=== PATIENT | female | born 1985 | race Caucasian/White ===

== ENCOUNTER 2017-10-21 02:16 | Inpatient (IN) | payer OTHER ==
[~2017-10-21] VITALS: Ht 149.9 cm; Wt 43.5 kg
--- NOTE | 2017-10-21 03:30 | NUR ---
PRE-ADMISSION NOTE VS BP-117/74 T-98.9 P-115 R-18 PA-08/14. PATIENT SEEN IN INTAKE. PATIENT ALERT AND VERBALLY RESPONSIVE. PATIENT AMBULATORY. SPEECH CLEAR AND ANSWERS QUESTIONS APPROPRIATELY. PATIENT ANXIOUS, RESTLESS AND IRRITABLE. PATIENT IS ALLERGIC TO CODEINE AND STRAWBERRY. WILL CONTINUE ADMISSION ON 3RD FLOOR.
[2017-10-21] MEDS ORDERED: LORAZEPAM 2 MG/1 ML VIAL IM PRN (03:45)
[2017-10-21] MEDS ORDERED: diphenhydrAMINE 50 MG CAPSULE PO PRN (03:45)
[2017-10-21] MEDS ORDERED: THIAMINE HCL 200 MG/2 ML VIAL IM ONE (03:45)
[2017-10-21] MEDS ORDERED: HYDROXYZINE PAMOATE 25 MG CAPSULE PO PRN (03:45)
[2017-10-21] MEDS ORDERED: IBUPROFEN 400 MG TABLET PO PRN (03:45)
[2017-10-21] MEDS ORDERED: LOPERAMIDE HCL 2 MG CAPSULE PO PRN ×2 (03:45)
[2017-10-21] MEDS ORDERED: DICYCLOMINE HCL 20 MG TABLET PO PRN (03:45)
[2017-10-21] MEDS ORDERED: MIRALAX 17 GM POWD.PACK PO PRN (03:45)
[2017-10-21] MEDS ORDERED: ACETAMINOPHEN 325 MG TABLET PO PRN (03:45)
[2017-10-21] MEDS ORDERED: CLONIDINE HCL 0.1 MG TABLET PO PRN (03:45)
[2017-10-21] MEDS ORDERED: ONDANSETRON 4 MG/2 ML VIAL IM PRN (03:45)
[2017-10-21] MEDS ORDERED: MAG HYDROX/AL HYDROX/SIMETH 30 ML LIQUID UDC PO PRN (03:45)
[2017-10-21] MEDS ORDERED: ONDANSETRON ODT 4 MG TAB.RAPDIS SL PRN (03:45)
[2017-10-21] MEDS ORDERED: MAGNESIUM HYDROXIDE 30 ML LIQUID UDC PO PRN (03:45)
[2017-10-21] MEDS ORDERED: LORAZEPAM 1 MG TABLET PO PRN ×2 (03:45)
--- NOTE | 2017-10-21 03:56 | NUR ---
ADMISSION NOTE PATIENT IS A 32 YEAR OLD FEMALE WHO PRESENTS TO [facility] FOR MEDICALLY SUPERVISED WITHDRAWAL FROM ETOH/BENZO WITHDRAWAL . HEIGHT IS 4'11 AND WEIGHT IS 95 LBS . BODY CHECK DONE . PATIENT NOTED WITH MULTIPLE CUTS ON LEFT ARM AND LEFT THIGH , PATIENT STATES SHE IS CUTTING HERSELF SINCE SHE WAS 16 YEARS OLD, LAST ONE WAS 2 DAYS AGO. PICTURE TAKEN. RESPIRATION EVEN AND UNLABORED. LUNGS CLEAR AND ABDOMEN SOFT AND NON-DISTENDED. BOWEL SOUNDS ACTIVE IN ALL QUADRANT. PATIENT REQUESTED TO BE FULL CODE AND ON REGULAR DIET. 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 NO SEIZURE HISTORY. PATIENT IS SEEKING FOR TREATMENT BECAUSE I WANT TO DETOX FROM ALCOHOL AND TO LEARN HOW TO FUNCTION AGAIN . SHE LIVE WITH HER AND SHES UNEMPLOYED. SUBSTANCE HISTORY 1.ALCOHOL (MICHELOB LIGHT/SMIRNOFF)-STARTED USING AT AGE 15. SHE DRINKS INTERMITTENTLY/BINGE- 2 (6 PACK ), WKLY ON/OFF AND MONTHS (ON/OFF) FOR 3 YEARS. LAST DRINK WAS 8 BOTTLES OF MICHELOB LIGHT PRIOR TO ADMISSION AT 1 AM. 2.ATIVAN 0.5 MG (PRESCRIBED)-STARTED USING 4 YEARS AGO. HE TAKES 1-2 MG NEEDED BID FOR 4 YEARS. LAST USE WAS 1 MG ON 10/20/17 AT 6 PM PER PATIENT THIS IS HER FIRST TIME IN DETOX FOR ALCOHOL. PATIENT PRESENTS WITH FLAT AFFECT, DEPRESSED MOOD, ANXIETY, IRRITABILITY, RESTLESSNESS, AND EMOTIONAL . CIWA 7. SHE STATES SHE HAS SUICIDE IDEATION THROUGHOUT THE DAY BUT NOT THIS TIME. HER PCP IS NAMED DR. BRADLEY. PATIENT ORIENTED TO SURROUNDINGS AND HOW TO USE CALL LIGHT. CALL LIGHT IN REACH. WILL CONTINUE TO MONITOR .
[2017-10-21] MEDS ORDERED: BACL20TA PO (03:58)
[2017-10-21] MEDS ORDERED: [UNRECOGNIZED DRUG - CODE] MM (03:58)
[2017-10-21] MEDS ORDERED: QUET400T3 PO (03:58)
[2017-10-21 05:16] LABS: *URINE HCG, QUAL NEGATIVE (NEGATIVE)
[2017-10-21 05:17] LABS: ALANINE AMINOTRANSFERASE 19 U/L (14-59); ALKALINE PHOSPHATASE 64 U/L (50-136); AMYLASE 28 U/L (25-115); ASPARTATE AMINOTRANSFERASE 16 U/L (15-37); BILIRUBIN,TOTAL 0.3 mg/dL (0.2-1.0); CARBON DIOXIDE 26 mmol/L (21-32); CHLORIDE 103 mmol/L (98-107); CREATININE 0.9 mg/dL (0.6-1.3); GLUCOSE 117 mg/dL (74-106); LIPASE 143 U/L (73-393); MAGNESIUM 2.3 mg/dL (1.8-2.4); POTASSIUM 3.7 mmol/L (3.5-5.1); TOTAL PROTEIN, SERUM 7.5 g/dL (6.4-8.2); UREA NITROGEN, BLOOD 6 mg/dL (7-18)
[2017-10-21 05:26] LABS: THYROID STIMULATING HORMONE 2.207 mIU/mL (0.358-3.740)
[2017-10-21 05:28] LABS: *AMPHETAMINE, URINE NEGATIVE (NEGATIVE); *BARBITURATE, URINE NEGATIVE (NEGATIVE); *CANNABINOID, URINE NEGATIVE (NEGATIVE); *COCCAINE, URINE NEGATIVE (NEGATIVE); *OPIATE, URINE NEGATIVE (NEGATIVE); *PHENCYCLIDINE SCREEN,URINE NEGATIVE (NEGATIVE)
[2017-10-21 05:31] LABS: ETHANOL < 3 MG/DL (0-0)
[2017-10-21 05:33] LABS: BASOPHILS % (AUTO) 0.3 % (0.0-2.0); EOSINOPHILS % (AUTO) 0.2 % (0.0-7.0); HEMATOCRIT 42.8 % (31.2-41.9); LYMPHOCYTES # (AUTO) 3.5 K/uL (20.0-40.0); LYMPHOCYTES % (AUTO) 25.2 % (20.5-51.5); MEAN CORPUSCULAR HEMOGLOBIN 31.5 uug (24.7-32.8); MEAN CORPUSCULAR HGB CONC 35 g/dL (32.3-35.6); MEAN CORPUSCULAR VOLUME 89.8 fL (75.5-95.3); MONOCYTES # (AUTO) 1.2 K/uL (2.0-10.0); MONOCYTES % (AUTO) 8.8 % (0.0-11.0); NEUTROPHILS # (AUTO) 9.2 K/uL (1.8-8.9); NEUTROPHILS % (AUTO) 65.5 % (38.5-71.5); PLATELET COUNT (AUTO) 304 K/uL (179-408); RED BLOOD CELL COUNT(AUTO) 4.76 MIL/uL (3.63-4.92); WHITE BLOOD COUNT (AUTO) 14.1 K/uL (3.8-11.8)
--- NOTE | 2017-10-21 05:35 | NUR ---
PRN VISTARIL ADMIN PATIENT C/O ANXIETY. WILL MONITOR FOR EFFECTIVENESS
[2017-10-21] MEDS ORDERED: LORA-258 PO (06:17)
--- NOTE | 2017-10-21 06:35 | NUR ---
PRN VISTARIL RE-ASSESSMENT PATIENT STATES VISTARIL HELPFUL AND EFFECTIVE. WILL CONTINUE TO MONITOR
[2017-10-21 08:00] VITALS: BP 102/64
--- NOTE | 2017-10-21 08:00 | NUR ---
START OF SHIFT NOTE Received report from night nurse, Patient admitted for ETOH withdrawal. Patient currently not on any taper PRN'S available for increased /s of withdrawal. Per endorsement pt received PRN Vistaril and last CIWA score was 7, slept for 1 hours. Patient is currently resting in her room and reported " I am feeling so tired please do not disturb me". Breathing normal no SOB noted. Responsive to verbal and tactile stimuli. Skin warm and dry to touch. All safety measures in place. Call light within reach. Will cont to monitor. Addendum: 10/21/17 at 1238 by ELANA HAAS LVN Vistaril was effective per night nurse.
[2017-10-21] MEDS ORDERED: THIAMINE HCL 100 MG TABLET PO SCH (09:00)
[2017-10-21] MEDS ORDERED: MULTIVITAMINS,THERAPEUTIC TABLET PO SCH (09:00)
[2017-10-21] MEDS ORDERED: FOLIC ACID 1 MG TABLET PO SCH (09:00)
[2017-10-21 12:00] VITALS: BP 123/86
--- NOTE | 2017-10-21 12:45 | NUR ---
AMA NOTE Pt left AMA, Pt refused to comply with treatment plan. Pt educated about the risks and consequences of leaving AMA, pt verbalized understanding but was adamant about leaving. Multiple staff members including the doctor, patient advocates and nurses attempted to reason with the pt without any success. VS WNL. Skin intact, pt denies any suicidal or homicidal ideations. Pt psychiatrist and MD were notified and aware. Patient was given a list of community resources, AMA forms explained and signed. All belongings and medications returned to Patient. Patient left facility AMA on 10/21/17 at 1245.
[2017-10-21] MEDS ORDERED: QUETIAPINE FUMARATE 200 MG TABLET PO SCH (21:00)
[2017-10-22] MEDS ORDERED: TUBERCULIN,PURIF.PROT.DERIV. 5 TU/0.1 ML TEST ID ONE (09:00)
[2017-10-22 13:06] LABS: HEPATITIS B SURFACE AG Negative (Negative)
== END 2017-10-21 12:45 | disposition left against medical advice (07) | DRG 894 ==
LOC: SRC 02:16
PROVIDERS: ADMIT Internal Medicine; ATTEND Internal Medicine
PROC: HZ2ZZZZ Detoxification Services for Substance Abuse Treatment (ICD-10-PCS; principal; 2017-10-21)
DX: F10.20 Alcohol dependence, uncomplicated (principal); F31.64 Bipolar disorder, current episode mixed, severe, with psychotic features; F13.90 Sedative, hypnotic, or anxiolytic use, unspecified, uncomplicated; Y90.0 Blood alcohol level of less than 20 mg/100 ml; Z79.899 Other long term (current) drug therapy; Z91.5 Personal history of self-harm; Z88.6 Allergy status to analgesic agent; Z91.018 Allergy to other foods; J45.20 Mild intermittent asthma, uncomplicated; F60.3 Borderline personality disorder; F17.210 Nicotine dependence, cigarettes, uncomplicated; M50.90 Cervical disc disorder, unspecified, unspecified cervical region; F41.9 Anxiety disorder, unspecified
CPT/HCPCS: 36415; 80307; 83690; 83735; 84443; 84703; 85025; 86592; 86705; 86803; 87340; 87806; A4663; G0480